=== PATIENT | male | born 1970 | race Caucasian/White ===

== ENCOUNTER 2020-05-19 15:13 | Outpatient (CLI) | payer BC | END 2020-05-19 15:14 | disposition home or self-care (01) | LOC: RAD-FRANK 15:13 | PROVIDERS: ATTEND Nurse Practitioner Family | DX: L84 Corns and callosities (principal); L08.9 Local infection of the skin and subcutaneous tissue, unspecified; M21.969 Unspecified acquired deformity of unspecified lower leg; M79.671 Pain in right foot ==

== ENCOUNTER 2020-05-20 11:14 | Emergency (ER) | payer BC ==
[2020-05-20 12:31] LABS: #Eosinphils 0.2 thou/uL (0.0-0.7); #Lymphocytes 1.6 thou/uL (1.20-3.40); #Monocytes 0.3 thou/uL (0.11-0.59); #Neutrophils 4.2 thou/uL (1.40-6.50); %Basophils 0.7 % (0.0-1.0); %Eosinophils 2.9 % (0.0-10.0); %Lymphocytes 25.8 % (21.0-51.0); %Monocytes 4.6 % (0.0-10.0); %Neutrophils 65.9 % (42.0-75.0); Hemoglobin 14.4 g/dL (14.0-18.0); Mean Corpuscular HGB CONC 33.4 g/dL (32.0-36.0); Mean Corpuscular Hemoglobin 30.6 pg (27.0-31.0); Mean Corpuscular Volume 91.7 fL (78.0-98.0); Mean Platelet Volume 8.8 fL (7.4-10.4); Platelet Count 106 thou/uL (130-400); RBC Distribution Width 12.1 % (11.5-14.5); Red Blood Cell (RBC) Count 4.72 mill/uL (4.70-6.10); White Blood Cell (WBC) Count 6.4 thou/uL (4.8-10.8)
[2020-05-20 12:45] LABS: Platelet Morphology Comment Appears Decreased; RBC Morphology Normal
[2020-05-20 12:57] LABS: ALT (SGPT) 48 U/L (8-55); AST (SGOT) 33 U/L (5-34); Alkaline Phosphatase 56 U/L (40-110); Anion Gap 16 mmol/L (10-20); BUN (Urea Nitrogen) 20 mg/dL (8.9-20.6); Bilirubin, Total 0.4 mg/dL (0.2-1.2); Calc. Creatinine Clearance 0 mL/min (70-130); Calcium 8.3 mg/dL (7.8-10.44); Carbon Dioxide 22 mmol/L (22-29); Chloride 106 mmol/L (98-107); Globulin 3.2 g/dL (2.4-3.5); Glucose 100 mg/dL (70-105); Potassium 4.7 mmol/L (3.5-5.1); Protein, Total 7.2 g/dL (6.0-8.3); Sodium 139 mmol/L (136-145)
[2020-05-20] MEDS ORDERED: Ketorolac Tromethamine 30 MG/ML VIAL ONE (13:38)
== END 2020-05-20 14:16 | disposition home or self-care (01) ==
LOC: ERS 11:14
DX: L03.115 Cellulitis of right lower limb (principal); F17.210 Nicotine dependence, cigarettes, uncomplicated
CPT/HCPCS: 80053; 83605; 85025; 85652; 86140; 87040; 96374; J1885

== ENCOUNTER 2023-12-31 12:00 | Inpatient (IN) | payer OTHER ==
[2023-12-31] MEDS ORDERED: fentaNYL 50 mcg/mL 1 mL Vial ONE (13:21)
[2023-12-31 13:36] LABS: %Basophils 1.1 % (0.0-1.0); %Eosinophils 5.2 % (0.0-10.0); %Lymphocytes 14.2 % (21.0-51.0); %Monocytes 5.8 % (0.0-10.0); %Neutrophils 73.3 % (42.0-75.0); Hematocrit 37.4 % (42.0-52.0); Hemoglobin 12.5 g/dL (14.0-18.0); Mean Corpuscular HGB CONC 33.4 g/dL (32.0-36.0); Mean Corpuscular Hemoglobin 29.4 pg (27.0-31.0); Platelet Count 172 10x3/uL (130-400); RBC Distribution Width 16.7 % (11.5-14.5); Red Blood Cell (RBC) Count 4.25 mill/uL (4.70-6.10)
[2023-12-31 13:53] LABS: ALT (SGPT) 213 U/L (8-55); AST (SGOT) 92 U/L (5-34); Albumin 3.1 g/dL (3.5-5.0); Alkaline Phosphatase 513 U/L (40-110); Anion Gap 12 mmol/L (10-20); BUN (Urea Nitrogen) 14 mg/dL (8.4-25.7); Bilirubin, Total 8.6 mg/dL (0.2-1.2); Calc. Creatinine Clearance 0 mL/min (70-130); Calcium 9.3 mg/dL (7.8-10.44); Carbon Dioxide 27 mmol/L (22-29); Chloride 100 mmol/L (98-107); Estimated GFR 113; Globulin 3.6 g/dL (2.4-3.5); Glucose 133 mg/dL (70-105); Lipase 39 U/L (8-78); Magnesium 2.2 mg/dL (1.6-2.6); Potassium 3.4 mmol/L (3.5-5.1); Protein, Total 6.7 g/dL (6.0-8.3); Sodium 136 mmol/L (136-145)
[2023-12-31 14:27] LABS: HBCM Index 0.12 S/CO (0-0.79); HBsAg Index 0.27 S/CO (0-0.99); Hep A IgM AB NONREACTIVE (NonReactive); Hep A IgM S/CO 0.18 S/CO (0-0.79); Hep B Surf Ag NONREACTIVE S/CO (NonReactive); Hep C IgG Ab Reflex HepC Qnt S/CO (NonReactive); Hep C Index 16.96 S/CO (0-0.79); Hepatitis B Core IgM Abs NONREACTIVE S/CO (NonReactive)
[2023-12-31] MEDS ORDERED: Ondansetron ODT 4 MG TAB PO PRN (15:08)
[2023-12-31] MEDS ORDERED: Acetaminophen 325 MG TAB PO PRN (15:08)
[2023-12-31 15:41] VITALS: BMI 28.0
[2023-12-31] MEDS: Nicotine 14 MG PATCH TD SCH (17:17)
[2023-12-31] MEDS: traMADol HCl 50 MG TAB PO PRN (17:27)
[2023-12-31] MEDS: Famotidine 20 MG TAB PO SCH (20:05)
[2023-12-31] MEDS: Morphine 4 MG/ML VIAL SLOW IVP PRN (20:30)
[2024-01-01 05:14] LABS: ALT (SGPT) 196 U/L (8-55); AST (SGOT) 80 U/L (5-34); Alkaline Phosphatase 492 U/L (40-110); Anion Gap 13 mmol/L (10-20); BUN (Urea Nitrogen) 15 mg/dL (8.4-25.7); Bilirubin, Total 8.8 mg/dL (0.2-1.2); Calc. Creatinine Clearance 141 mL/min (70-130); Calcium 9.2 mg/dL (7.8-10.44); Carbon Dioxide 27 mmol/L (22-29); Chloride 101 mmol/L (98-107); Estimated GFR 108; Globulin 3.3 g/dL (2.4-3.5); Glucose 117 mg/dL (70-105); Potassium 2.7 mmol/L (3.5-5.1); Protein, Total 6.3 g/dL (6.0-8.3); Sodium 138 mmol/L (136-145)
[2024-01-01] MEDS: Potassium Chloride 20 MEQ in Premix 1 BAG IVPB SCH (09:12)
[2024-01-01] MEDS ORDERED: Lidocaine 1% PF 5 ML VIAL ONE (09:48)
[2024-01-01] MEDS ORDERED: fentaNYL PF 100 MCG/2 ML SYRINGE ONE (09:48)
[2024-01-01] MEDS ORDERED: SUGAMMADEX SODIUM 200 MG/2 ML VIAL ONE (09:48)
[2024-01-01] MEDS ORDERED: Dexamethasone 4 mg/ml Vial ONE (09:48)
[2024-01-01] MEDS ORDERED: PROPOFOL 40 ML ONE (09:48)
[2024-01-01] MEDS ORDERED: Rocuronium Bromide 10 MG/ML (10ML VIAL) ONE (09:48)
[2024-01-01] MEDS ORDERED: Ondansetron PF 4 MG/2 ML Vial ONE (09:48)
[2024-01-01] MEDS ORDERED: Indomethacin 50 MG SUPP ONE (09:55)
[2024-01-01] MEDS ORDERED: cefTRIAXone (ROCEPHIN) 1 GM VIAL ONE (10:43)
[2024-01-01] MEDS ORDERED: Glucagon 1 MG/ML KIT ONE ×2 (10:57→11:29)
[2024-01-01] MEDS ORDERED: PHENYLEPHRINE-NS 100 MCG/ML 10 ML SYRINGE ONE (11:25)
[2024-01-01] MEDS: Potassium Chloride 20 MEQ TAB PO SCH (16:52)
[2024-01-01 16:55] VITALS: BP 136/79; TEMP 98.1
[2024-01-02 18:39] LABS: Hep C PCR-Quant HCV Not Detected IU/mL (.)
== END 2024-01-01 17:15 | disposition home or self-care (01) | DRG 438 ==
LOC: ERS 12:00 → MSONC 15:23
PROVIDERS: ADMIT Hospitalist; ATTEND Internal Medicine
PROC: 0F798DZ Dilation of Common Bile Duct with Intraluminal Device, Via Natural or Artificial Opening Endoscopic (ICD-10-PCS; principal; 2024-01-01)
DX: K86.89 Other specified diseases of pancreas (principal); K83.1 Obstruction of bile duct; F31.9 Bipolar disorder, unspecified; E87.6 Hypokalemia; F17.210 Nicotine dependence, cigarettes, uncomplicated; Z88.5 Allergy status to narcotic agent; Z71.6 Tobacco abuse counseling
CPT/HCPCS: 36415; 74177; 74330; 80053; 80074; 83690; 83735; 85025; 87522; C2625; J0696; J1100; J1611; J2272; J2405; J2704; J3010; J3480

== ENCOUNTER 2024-03-21 07:06 | Day surgery (SDC) | payer OTHER ==
[2024-03-21 07:59] LABS: #Basophils 0.05 10x3/uL (0.0-0.2); %Basophils 0.5 % (0.0-1.0); %Eosinophils 3.4 % (0.0-10.0); %Monocytes 4.8 % (0.0-10.0); Hematocrit 31.9 % (42.0-52.0); Hemoglobin 9.8 g/dL (14.0-18.0); Mean Corpuscular HGB CONC 30.7 g/dL (32.0-36.0); Mean Corpuscular Hemoglobin 27.4 pg (27.0-31.0); Mean Corpuscular Volume 89.1 fL (78.0-98.0); Mean Platelet Volume 11.1 fL (7.4-10.4); Platelet Count 265 10x3/uL (130-400); RBC Distribution Width 15.5 % (11.5-14.5); Red Blood Cell (RBC) Count 3.58 mill/uL (4.70-6.10)
[2024-03-21] MEDS ORDERED: Sodium Chloride 0.9% 500 ML ONE (08:40)
[2024-03-21] MEDS ORDERED: Sodium Bicarbonate 2.5 MEQ/5 ML SDV ONE (08:40)
[2024-03-21] MEDS ORDERED: Lidocaine 1% w/Epinephrine 1:100K 20 ML VIAL ONE ×2 (08:40→10:19)
[2024-03-21 08:42] LABS: INR-International Normal Ratio 1.3; Prothrombin Time 15.9 sec (12.0-14.7)
[2024-03-21 08:44] LABS: PTT 30.6 sec (22.9-36.1)
[2024-03-21] MEDS ORDERED: fentaNYL 50 mcg/mL 1 mL Vial ONE ×2 (08:58→10:17)
[2024-03-21] MEDS ORDERED: Ondansetron PF 4 MG/2 ML Vial ONE (08:58)
[2024-03-21] MEDS ORDERED: Midazolam HCl 2 mg/2 ml Vial ONE ×2 (08:59→10:18)
[2024-03-21 09:13] VITALS: BP 137/79; TEMP 97.1
[2024-03-21] MEDS ORDERED: CEFAZOLIN 1 GM VIAL ONE (09:52)
[2024-03-21] MEDS ORDERED: diphenhydrAMINE 50 MG/ML VIAL ONE (10:17)
[2024-03-21] MEDS ORDERED: FLU (Fluarix Triv) TS24-25(6MOS UP)/PF 45 MCG/0.5 ML Syringe IM ONE (12:00)
== END 2024-03-21 11:53 | disposition home or self-care (01) ==
LOC: SPEC 07:06
PROVIDERS: ATTEND Internal Medicine Hematology & Oncology
PROC: 0JH63WZ Insertion of Totally Implantable Vascular Access Device into Chest Subcutaneous Tissue and Fascia, Percutaneous Approach (ICD-10-PCS; principal; 2024-03-21)
DX: C25.0 Malignant neoplasm of head of pancreas (principal); B19.20 Unspecified viral hepatitis C without hepatic coma; F17.200 Nicotine dependence, unspecified, uncomplicated; Z88.5 Allergy status to narcotic agent; Z79.899 Other long term (current) drug therapy
CPT/HCPCS: 36415; 36561; 71045; 76937; 77001; 85025; 85610; 85730; 99152; 99153; C1769; C1788; J0690; J1200; J1642; J2250; J2405; J3010; J7030